=== PATIENT | female | born 1960 | race Caucasian/White ===

== ENCOUNTER 2023-03-31 17:11 | Emergency (ER) | payer OTHER, SELFPAY ==
[2023-03-31 17:15] VITALS: BP 157/98
--- NOTE | 2023-03-31 17:36 | ED.GENMED ---
History of Present Illness
General
Chief Complaint: Vascular Symptoms
Source: patient
Time Seen by Provider: 03/31/23 17:26
Travel History
Have you had any contact with someone who has COVID-19?: No
Do you have any symptoms of coronavirus? Fever > 100 degrees, chills, cough, shortness of breath, sore throat, loss of taste or smell, muscle aches, or headache?: No
History of Present Illness
History of Present Illness:
62-year-old female presents to the emergency room complaining of lower extremity edema and some redness. Patient states she began taking a medication for rheumatoid arthritis, Rinvoq. Patient states that shortly after starting medication she had
experienced swelling throughout her body. She stopped the medicine and after 3 days seems to feel the swelling is improved. She saw her application systems engineer today who referred her to the emergency room. She continues to have swelling of her lower
extremities. Patient has history of pulmonary fibrosis as well. She is on 3 L of oxygen at baseline. She does not feel more short of breath than her recent baseline. She is urinating normally.
Past History
Past History
ED Past Medical History: COPD, Other (Ankylosing spondylitis, chronic pain syndrome, GERD, diverticulitis, diverticulosis, fibromyalgia, kidney stones) and Other (Alkalosing spondylitis, migraine headaches, fibromyalgia)
ED Past Surgical History: Appendectomy, Cholecystectomy and Orthopedic (Surgery right elbow for ulnar nerve entrapment release)
Social History
Tobacco: Former smoker
Alcohol: None
Drug: None
Personal:
Living: with family
Employment: Employed
Family History
Family History: Other
Phy Exam
Physical Exam
Physical Exam:
General: Awake, Alert, Oriented X3. No acute distress.
Vitals: Mildly tachycardic
Head: Atraumatic
Eyes: Pupils equal, EOMI
Throat: Airway intact, no exudates
Neck: Trachea midline
Lungs: Crackles bilateral bases
Heart: Regular rate, no murmurs
Abd: Soft, Nontender, No pulsatile mass
Neuro: Nonfocal
Skin: Warm, dry, no rash
Extremities: pulses equal b/l, 2-3+ edema
Course
Orders/Labs/Results
Orders:
Orders
03/31/23 17:35
US Periph Venous LOWER Ext Patricio Urgent
Comment:
Reason For Exam: Pain, swelling
03/31/23 17:39
Basic Metabolic Panel Urgent
Complete Blood Count/With Diff Urgent
NT-proBNP Urgent
Abnormal Lab Results
03/31/23
17:39
RBC 3.87 L 10^6/uL
(4.20-5.40)
Hct 36.9 L %
(37.0-47.0)
MCH 32.8 H pg
(27.0-31.0)
Neutrophils % 76.5 H %
(42.2-75.2)
Lymphocytes % 14.9 L %
(20.5-51.1)
Carbon Dioxide 31 H mmol/L
(22-30)
Glucose 114 H mg/dl
(70-99)
03/31/23 17:39
03/31/23 17:39
Vital Signs
Initial and Last Documented VS:
Initial Vital Signs
Temp Pulse Resp BP Pulse Ox
98.0 F 105 18 157/98 98
03/31/23 17:15 03/31/23 17:15 03/31/23 17:15 03/31/23 17:15 03/31/23 17:15
Last Documented Vital Signs
Temp Pulse Resp BP Pulse Ox
98.0 F 105 18 157/98 98
03/31/23 17:15 03/31/23 17:15 03/31/23 17:15 03/31/23 17:15 03/31/23 17:15
MDM/Problems Addressed
Differential Diagnosis Includes:
Medication reaction, dependent edema, DVT, cellulitis
MDM/Problems Addressed:
Patient exam is not consistent with cellulitis. The fact she has bilateral leg swelling at the same time argues against a DVT but we did perform Dopplers which were negative. Labs show a normal BNP. Remainder of her labs are unremarkable.
Suspect dependent edema. Stable for discharge home.
*Radiology
Radiology exam reviewed: radiology read reviewed
*Critical Care Note
Total Time (30-74mins, 75-104mins- exclusive of procedures): Not Applicable
ED Attending Note
-
Portions of this chart may have been created with voice recognition software.� Occasional wrong word or��sound alike� substitutions may have occurred due to the inherent limitations of voice recognition software.
Discharge Plan
Departure
Patient Disposition: Home (Routine Discharge)
Date of Disposition: 03/31/23
Time of Disposition: 19:04
Patient with high blood pressure during this ER visit?: Yes
Condition: Good
Discharge Problem:
Edema, peripheral
Instructions: Dependent Edema (DC), BLOOD PRESSURE
Prescriptions:
No Action
famotidine 40 MG tablet
40 mg PO BID
oxycodone 15 MG tablet
15 mg PO 5/D Qty: 0
Patient Comments:
patient product picker on 01/31/23 #[id number]
diphenhydramine HCl [Banophen] 25 MG capsule
25 mg PO HSPRN PRN (Reason: insomnia)
buprenorphine HCl [Belbuca] 150 MCG film
300 mcg buccal BID
Patient Comments:
07/31/2020: last filled 07/28/20, 60 tabs [facility]
acetaminophen 325 MG tablet
325 mg PO Q4HPRN PRN (Reason: mild pain)
ondansetron HCl 4 mg Tablet
4 mg PO Q6H PRN (Reason: nausea) Qty: 0
Patient Comments:
pt does not know mg
multivitamin Tablet
1 tab PO DAILY
fluticasone propion-salmeterol [Advair Diskus] 250-50 mcg/dose Blister With Device
1 inh INHALATION R BID
venlafaxine [Effexor XR] 150 mg Capsule,Extended Release 24hr
150 mg PO HS
bupropion HCl [Wellbutrin XL] 300 mg Tablet Extended Release 24 Hr
300 mg PO DAILY
atomoxetine 60 mg capsule
60 mg PO DAILY
benzonatate 100 mg Capsule
200 mg PO TIDPRN PRN (Reason: cough) Qty: 20 0RF
oseltamivir 75 mg Capsule
75 mg PO BID 2 Days Qty: 4 0RF
guaifenesin 600 mg Tablet Extended Release 12hr
600 mg PO Q12 Qty: 30 0RF
levalbuterol HCl 0.63 mg/3 mL Solution For Nebulization
0.63 mg inhalation R Q6HPRN PRN (Reason: WHEEZING/SOB) Qty: 72 0RF
cefdinir 300 mg Capsule
300 mg PO Q12 5 Days Qty: 10 0RF
prednisone 10 mg Tablet
See Rx Instructions .ROUTE .COMPLEX Qty: 45 0RF
Rx Instructions:
Take By Mouth:
50 mg daily x3 days, 40 mg daily x3 days,
30 mg daily x3 days, 20 mg daily x3 days,
10 mg daily x3 days
albuterol sulfate 90 mcg/actuation aerosol powdr breath activated
2 inh inhalation Q4H PRN (Reason: shortness of breath or wheezing) Qty: 1 0RF
Referrals:
Nathaniel Betancourt, DO [Family Provider] -
Interventions
Interventions:
*ED COVID-19 Vaccine History Last Done: 03/31/23 17:15
*Nursing Disposition Last Done: 03/31/23 19:40
ED- Cardiac Assessment Last Done: 03/31/23 19:38
ED- Pulmonary Assessment Last Done: 03/31/23 19:38
ED-Peripheral Vascular Assessment Last Done: 03/31/23 19:39
ED-Skin Assessment Last Done: 03/31/23 19:38
Discharge Date and Time
Discharge Date/Time: 03/31/23 19:40
[2023-03-31 17:54] LABS: % Basophils 0.2 % (0-2); % Eosinophils 0.6 % (0-6); % Immature Granulocytes 0.2 % (0-0.5); % Lymphocytes 14.9 % (20.5-51.1); % Monocytes 7.6 % (1.7-9.3); % Neutrophils 76.5 % (42.2-75.2); Absolute Eosinophils 0.1 10^3/uL (0-0.7); Absolute Lymphocytes 1.2 10^3/uL (1.2-3.4); Absolute Monocytes 0.6 10^3/uL (0.1-0.6); Absolute Neutrophils 6.3 10^3/uL (1.4-6.5); Hematocrit 36.9 % (37.0-47.0); Hemoglobin 12.7 g/dL (12.0-16.0); Mean Corp Hgb Conc. 34.4 g/dL (33.0-37.0); Mean Corpuscular Hgb 32.8 pg (27.0-31.0); Mean Corpuscular Volume 95.3 fL (81.0-99.0); Mean Platelet Volume 9.3 fL (7.4-10.4); Nucleated Red Blood Cells % 0 %; Platelet Count 281 10^3/uL (130-400); Red Blood Cell Count 3.87 10^6/uL (4.20-5.40); Red Cell Dist. Width 13.2 % (11.5-14.5); White Blood Cell Count 8.3 10^3/uL (4.8-10.8)
[2023-03-31 18:15] LABS: NT-proBNP 40.4 pg/ml
[2023-03-31 18:16] LABS: Blood Urea Nitrogen 15 mg/dl (7-17); Calcium 9.2 mg/dl (8.4-10.2); Carbon Dioxide 31 mmol/L (22-30); Chloride 101 mmol/L (98-107); Glucose 114 mg/dl (70-99); Sodium 136 mmol/L (135-145); eGFR > 60.00
== END 2023-03-31 19:40 | disposition home or self-care (01) ==
LOC: EMR 17:11
PROVIDERS: EMERGENCY PHYSICIAN Emergency Medicine; FAMILY PHYSICIAN Family Medicine
DX: R60.0 Localized edema (principal); R03.0 Elevated blood-pressure reading, without diagnosis of hypertension; Z87.891 Personal history of nicotine dependence
CPT/HCPCS: 99284; 80048; 83880; 85025; 93970

== ENCOUNTER → 2023-11-18 18:23 | Outpatient (REF) | payer OTHER, SELFPAY | LOC: RAD 18:23 | PROVIDERS: ATTENDING PHYSICIAN Physician Assistant Medical; FAMILY PHYSICIAN Family Medicine | DX: M25.532 Pain in left wrist (principal); M79.642 Pain in left hand | CPT/HCPCS: 73110; 73130 ==

== ENCOUNTER → 2023-12-05 18:28 | Outpatient (REF) | payer OTHER, SELFPAY | LOC: PAVMRI 18:28 | PROVIDERS: ATTENDING PHYSICIAN Student in an Organized Health Care Education/Training Program; PRIMARYCARE PHYSICIAN Family Medicine | DX: S62.115A Nondisplaced fracture of triquetrum [cuneiform] bone, left wrist, initial encounter for closed fracture (principal) | CPT/HCPCS: 73221 ==

== ENCOUNTER → 2024-06-07 13:00 | Outpatient (REF) | payer OTHER, SELFPAY | LOC: HWRAD 13:00 | PROVIDERS: ATTENDING PHYSICIAN Internal Medicine Critical Care Medicine; FAMILY PHYSICIAN Family Medicine; REFERRING PHYSICIAN Nurse Practitioner Adult Health | DX: J44.9 Chronic obstructive pulmonary disease, unspecified (principal); J84.9 Interstitial pulmonary disease, unspecified; R59.0 Localized enlarged lymph nodes; M45.9 Ankylosing spondylitis of unspecified sites in spine; I27.20 Pulmonary hypertension, unspecified | CPT/HCPCS: 71046; 71250 ==

== ENCOUNTER → 2024-08-02 13:54 | Outpatient (REF) | payer OTHER, SELFPAY ==
--- NOTE | 2024-08-02 14:50 | CARDSERVLU ---
Echocardiogram with Lumason completed after protocol screening completed. Allergies verified.
Patent IV site: __Right hand 22 G PC by IV team___
IV site flushed with 0.9% NaCl pre and post administration.
Diluted bolus method utilized to enhance visualization of ventricular correa.
Total volume given: __2__ mL
Patient tolerated all procedures well without complications.
Heplock D/C ed at 1448, site clear, no redness, no edema. Pressure held, no bleeding, 2x2 applied and taped. Pt offers no complaints.
== END ==
LOC: RCS 13:54
PROVIDERS: ATTENDING PHYSICIAN Internal Medicine Cardiovascular Disease; FAMILY PHYSICIAN Family Medicine
DX: I50.32 Chronic diastolic (congestive) heart failure (principal)
CPT/HCPCS: 93306; Q9950

== ENCOUNTER 2024-11-10 15:47 | Emergency (ER) | payer OTHER, SELFPAY ==
[2024-11-10 15:49] VITALS: BP 170/117
[2024-11-10 16:37] LABS: Hematocrit 38.5 % (37.0-47.0); Hemoglobin 12.8 g/dL (12.0-16.0); Mean Corp Hgb Conc. 33.2 g/dL (33.0-37.0); Mean Corpuscular Volume 92.8 fL (81.0-99.0); Nucleated Red Blood Cells % 0 %; Platelet Count 248 10^3/uL (130-400); Red Cell Dist. Width 13.2 % (11.5-14.5)
[2024-11-10 16:55] LABS: ALT (SGPT) 31 U/L (0-35); AST (SGOT) 31 U/L (14-36); Albumin 4.7 g/dl (3.5-5.0); Alkaline Phosphatase 117 U/L (38-126); Blood Urea Nitrogen 19 mg/dl (7-17); Calcium 9.2 mg/dl (8.4-10.2); Carbon Dioxide 29 mmol/L (22-30); Chloride 104 mmol/L (98-107); Glucose 94 mg/dl (70-99); Potassium 4.2 mmol/L (3.5-5.1); Sodium 139 mmol/L (135-145); Total Protein 8.0 g/dl (6.3-8.2); eGFR > 60.00
[2024-11-10 17:08] LABS: Troponin I < 0.012 ng/ml
[2024-11-10 17:16] LABS: D-Dimer 0.67 ug/mlFEU (0.00-0.50)
--- NOTE | 2024-11-10 17:42 | ED.GENMED ---
History of Present Illness
General
Chief Complaint: Breathing Problem
Source: patient
Time Seen by Provider: 11/10/24 17:27
History of Present Illness
History of Present Illness:
This patient is a 64-year-old female with a history of pulmonary fibrosis and COPD, wears 2 L of oxygen [id number] and 4 L with activity. Patient states she is recovering from COVID and in the last 2 weeks she is having intermittent episodes
of dyspnea. This will last a few minutes at a time and then resolve spontaneously. Usually is noted with activity and is not associated with chest pain or pressure, palpitations, dizziness, fever, chills, cough, sore throat, rhinorrhea, new leg
swelling, abdominal pain, vomiting. She saw her route sales trainee on and was advised to take steroids which she declined at that time. She is hoping to take a trip to [place] today and wanted to get checked out before leaving. She did note
that the last episode of short-lived dyspnea was this morning at approximately 7 AM when she needed to wake up to use the restroom. She walked to the bathroom and when she came back she felt better within a few minutes with a pulse ox of 90%.
Patient is now asymptomatic and has been asymptomatic since this event at 7 AM.
Past History
Past History
ED Past Medical History: COPD, Other (Ankylosing spondylitis, chronic pain syndrome, GERD, diverticulitis, diverticulosis, fibromyalgia, kidney stones) and Other (Alkalosing spondylitis, migraine headaches, fibromyalgia)
ED Past Surgical History: Appendectomy, Cholecystectomy and Orthopedic (Surgery right elbow for ulnar nerve entrapment release)
Social History
Tobacco: Former smoker
Alcohol: None
Drug: None
Personal:
Living: with family
Employment: Employed
Family History
Family History: Other
Phy Exam
Physical Exam
Physical Exam:
GENERAL: Alert , in no apparent distress, very pleasant, nontoxic, watching television
EYE: pupils equal and reactive
NECK: Supple, no significant adenopathy.
ENT: o/p clr, mmm.
CARDIAC: Regular rate and rhythm .
LUNGS: Clear breath sounds bilaterally, no acute respiratory distress, no wheezes/rales/rhonchi, speaks in full sentences easily, no stridor, no drool, voice clear
ABDOMEN: Soft, without focal tenderness, no r/g, no cvat
NEUROLOGICAL: Alert and oriented, no focal neuro deficits
SKIN: Warm and dry, skin intact.
MUSCULOSKELETAL: Trace bilateral lower extremity edema, well perfused.
PSYCH: Normal and appropriate interaction.
Scores
Heart Failure Risk
Heart Failure Risk Score: Not Applicable
Course
Orders/Labs/Results
Orders:
Orders
11/10/24 16:03
Electrocardiogram (*1) Urgent
Reason for Study: Shortness of Breath
Complete Blood Count/With Diff Urgent
Comprehensive Metabolic Panel Urgent
D-Dimer Urgent
Troponin I Urgent
Chest [CR Chest - 2 Views ] Urgent
Comment:
Reason For Exam: SOB
11/10/24 16:06
EKG- Treatment ONCE
11/10/24 17:42
CT Chest PE Study Urgent
Comment:
Reason For Exam: sob, hx copd
11/10/24 17:47
Influenza A+B Rapid Molecular Urgent
DANNIE Source: Nasal Swab
Specimen Description:
Abnormal Lab Results
11/10/24
16:03
RBC 4.15 L 10^6/uL
(4.20-5.40)
D-Dimer 0.67 H ug/mlFEU
(0.00-0.50)
BUN 19 H mg/dl
(7-17)
11/10/24 16:03
11/10/24 16:03
Vital Signs
Initial and Last Documented VS:
Initial Vital Signs
Temp Pulse Resp BP Pulse Ox
98.4 F 85 20 170/117 96
11/10/24 15:49 11/10/24 15:49 11/10/24 15:49 11/10/24 15:49 11/10/24 15:49
Last Documented Vital Signs
Temp Pulse Resp BP Pulse Ox
98.4 F 85 14 140/69 93
11/10/24 15:49 11/10/24 19:17 11/10/24 17:56 11/10/24 19:17 11/10/24 19:17
*Pulse Oximetry
SaO2: 96
Nasal Cannula flow liters per minute: 3
Patient hypoxic: no
*Critical Care Note
Total Time (30-74mins, 75-104mins- exclusive of procedures): Not Applicable
Update Note
Update Note:
Patient presents to the Emergency Department with __dyspnea
Number and Complexity of Problems Addressed at the Encounter
� Chronic conditions affecting care:
� Acute Exacerbation and/or Progression of Chronic Illness:
� Differential Diagnosis includes: But not limited to resolving COVID related symptoms, anxiety, PE, pneumonia, heart failure, ACS, etc. etc.
Amount and/or Complexity of Data to be Reviewed and Analyzed
� I performed an independent evaluation of and my interpretation is:
EKG: Read by me, normal sinus rhythm, normal rate, normal axis, no acute ischemia
CT:No CTA evidence for an acute pulmonary thromboembolism.
Pulmonary findings favored to represent a combination of emphysema, chronic fibrosis, and atelectasis
Xrays: Read by radiology chest x-ray NAD
Laboratory Studies: Generally unremarkable, troponin and BNP unremarkable D-dimer slightly elevated prompting CAT scan to rule out PE
Other:
� Review of other/old records reveals:
� Clinical information was obtained by an independent historian:
� Prescriptions/Medications Considered but not given:
� Further testing considered but not performed:
Risk of Complications and/or Morbidity or Mortality of Patient Management
� Social determinants of health affecting care:
� Discussion with other providers (PCP, Hospitalists, Consultants, etc):
� Escalation of care including admission/observation vs risk of discharge considered: Patient has remained clinically stable here, workup unremarkable. Highly doubt PE, pneumonia, ACS, failure, etc. as a cause of her symptoms.
Most likely symptoms thought to be related to residual COVID related illness in the context of COPD and pulmonary fibrosis. Consideration to begin patient on steroids with close pulmonary follow-up.
ED Attending Note
-
Portions of this chart may have been created with voice recognition software.� Occasional wrong word or��sound alike� substitutions may have occurred due to the inherent limitations of voice recognition software.
Discharge Plan
Departure
Patient with high blood pressure during this ER visit?: Yes
Condition: Good
Discharge Problem:
Dyspnea
Instructions: Shortness of Breath (Dyspnea) (DC), BLOOD PRESSURE
Prescriptions:
No Action
famotidine 40 MG tablet
40 mg PO BID
oxycodone 15 MG tablet
15 mg PO 5/D Qty: 0
Patient Comments:
patient flower buncher or picker on 01/31/23 #180
diphenhydramine HCl [Banophen] 25 MG capsule
25 mg PO HSPRN PRN (Reason: insomnia)
buprenorphine HCl [Belbuca] 150 MCG film
300 mcg buccal BID
Patient Comments:
07/31/2020: last filled 07/28/20, [facility]
acetaminophen 325 MG tablet
325 mg PO Q4HPRN PRN (Reason: mild pain)
ondansetron HCl 4 mg Tablet
4 mg PO Q6H PRN (Reason: nausea) Qty: 0
Patient Comments:
pt does not know mg
multivitamin Tablet
1 tab PO DAILY
fluticasone propion-salmeterol [Advair Diskus] 250-50 mcg/dose Blister With Device
1 inh INHALATION R BID
venlafaxine [Effexor XR] 150 mg Capsule,Extended Release 24hr
150 mg PO HS
bupropion HCl [Wellbutrin XL] 300 mg Tablet Extended Release 24 Hr
300 mg PO DAILY
atomoxetine 60 mg capsule
60 mg PO DAILY
benzonatate 100 mg Capsule
200 mg PO TIDPRN PRN (Reason: cough) Qty: 20 0RF
oseltamivir 75 mg Capsule
75 mg PO BID 2 Days Qty: 4 0RF
guaifenesin 600 mg Tablet Extended Release 12hr
600 mg PO Q12 Qty: 30 0RF
levalbuterol HCl 0.63 mg/3 mL Solution For Nebulization
0.63 mg inhalation R Q6HPRN PRN (Reason: WHEEZING/SOB) Qty: 72 0RF
cefdinir 300 mg Capsule
300 mg PO Q12 5 Days Qty: 10 0RF
prednisone 10 mg Tablet
See Rx Instructions .ROUTE .COMPLEX Qty: 45 0RF
Rx Instructions:
Take By Mouth:
50 mg daily x3 days, 40 mg daily x3 days,
30 mg daily x3 days, 20 mg daily x3 days,
10 mg daily x3 days
albuterol sulfate 90 mcg/actuation aerosol powdr breath activated
2 inh inhalation Q4H PRN (Reason: shortness of breath or wheezing) Qty: 1 0RF
Referrals:
UNKNOWN - PT DOES,NOT KNOW [Family Provider]
Activity Restrictions/Additional Instructions:
PLEASE SEE YOUR DOCTOR IN CLOSE FOLLOW UP. IF YOU DEVELOP RECURRENT SHORTNESS OF BREATH,ANY CHEST PAIN, VOMITING, FEVER, DIZZINESS, OR OTHER WORRISOME SIGNS, GO TO THE ER IMMEDIATELY!
Interventions
Interventions:
*Risk Screen - Suicide Last Done: 11/10/24 15:49
*General Assessment Last Done: 11/10/24 15:49
*Neglect/Abuse Screening Last Done: 11/10/24 15:49
*ED COVID-19 Vaccine History Last Done: 11/10/24 15:49
ED- Cardiac Assessment Last Done: 11/10/24 17:58
ED- Pulmonary Assessment Last Done: 11/10/24 17:58
Discharge Date and Time
Print Language: AUSTRIAN
[2024-11-10 17:55] VITALS: BMI 43.2
[2024-11-10 17:56] VITALS: BP 137/75
[2024-11-10 19:17] VITALS: BP 140/69
[2024-11-10 20:00] VITALS: BP 128/78
--- NOTE | 2024-11-10 20:53 | ED.GENMED ---
History of Present Illness
General
Chief Complaint: Breathing Problem
Time Seen by Provider: 11/10/24 17:27
Past History
Past History
ED Past Medical History: COPD, Other (Ankylosing spondylitis, chronic pain syndrome, GERD, diverticulitis, diverticulosis, fibromyalgia, kidney stones) and Other (Alkalosing spondylitis, migraine headaches, fibromyalgia)
ED Past Surgical History: Appendectomy, Cholecystectomy and Orthopedic (Surgery right elbow for ulnar nerve entrapment release)
Social History
Tobacco: Former smoker
Alcohol: None
Drug: None
Personal:
Living: with family
Employment: Employed
Family History
Family History: Other
Course
Orders/Labs/Results
Orders:
Orders
11/10/24 16:03
Electrocardiogram (*1) Urgent
Reason for Study: Shortness of Breath
Complete Blood Count/With Diff Urgent
Comprehensive Metabolic Panel Urgent
D-Dimer Urgent
Troponin I Urgent
Chest [CR Chest - 2 Views ] Urgent
Comment:
Reason For Exam: SOB
11/10/24 16:06
EKG- Treatment ONCE
11/10/24 17:42
CT Chest PE Study Urgent
Comment:
Reason For Exam: sob, hx copd
11/10/24 17:47
Influenza A+B Rapid Molecular Urgent
DANNIE Source: Nasal Swab
Specimen Description:
Abnormal Lab Results
11/10/24
16:03
RBC 4.15 L 10^6/uL
(4.20-5.40)
D-Dimer 0.67 H ug/mlFEU
(0.00-0.50)
BUN 19 H mg/dl
(7-17)
11/10/24 16:03
11/10/24 16:03
Vital Signs
Initial and Last Documented VS:
Initial Vital Signs
Temp Pulse Resp BP Pulse Ox
98.4 F 85 20 170/117 96
11/10/24 15:49 11/10/24 15:49 11/10/24 15:49 11/10/24 15:49 11/10/24 15:49
Last Documented Vital Signs
Temp Pulse Resp BP Pulse Ox
98.4 F 80 15 128/78 93
11/10/24 15:49 11/10/24 20:00 11/10/24 20:00 11/10/24 20:00 11/10/24 19:17
*Pulse Oximetry
SaO2: 93
Nasal Cannula flow liters per minute: 2
ED Attending Note
-
Portions of this chart may have been created with voice recognition software.� Occasional wrong word or��sound alike� substitutions may have occurred due to the inherent limitations of voice recognition software.
Discharge Plan
Departure
Patient Disposition: Home (Routine Discharge)
Date of Disposition: 11/10/24
Time of Disposition: 20:53
Patient with high blood pressure during this ER visit?: Yes
Condition: Good
Discharge Problem:
Dyspnea
Instructions: Shortness of Breath (Dyspnea) (DC), BLOOD PRESSURE
Prescriptions:
No Action
famotidine 40 MG tablet
40 mg PO BID
oxycodone 15 MG tablet
15 mg PO 5/D Qty: 0
Patient Comments:
patient sisal picker on 01/31/23 #180
diphenhydramine HCl [Banophen] 25 MG capsule
25 mg PO HSPRN PRN (Reason: insomnia)
buprenorphine HCl [Belbuca] 150 MCG film
300 mcg buccal BID
Patient Comments:
07/31/2020: last filled 07/28/20, [facility]
acetaminophen 325 MG tablet
325 mg PO Q4HPRN PRN (Reason: mild pain)
ondansetron HCl 4 mg Tablet
4 mg PO Q6H PRN (Reason: nausea) Qty: 0
Patient Comments:
pt does not know mg
multivitamin Tablet
1 tab PO DAILY
fluticasone propion-salmeterol [Advair Diskus] 250-50 mcg/dose Blister With Device
1 inh INHALATION R BID
venlafaxine [Effexor XR] 150 mg Capsule,Extended Release 24hr
150 mg PO HS
bupropion HCl [Wellbutrin XL] 300 mg Tablet Extended Release 24 Hr
300 mg PO DAILY
atomoxetine 60 mg capsule
60 mg PO DAILY
benzonatate 100 mg Capsule
200 mg PO TIDPRN PRN (Reason: cough) Qty: 20 0RF
oseltamivir 75 mg Capsule
75 mg PO BID 2 Days Qty: 4 0RF
guaifenesin 600 mg Tablet Extended Release 12hr
600 mg PO Q12 Qty: 30 0RF
levalbuterol HCl 0.63 mg/3 mL Solution For Nebulization
0.63 mg inhalation R Q6HPRN PRN (Reason: WHEEZING/SOB) Qty: 72 0RF
cefdinir 300 mg Capsule
300 mg PO Q12 5 Days Qty: 10 0RF
prednisone 10 mg Tablet
See Rx Instructions .ROUTE .COMPLEX Qty: 45 0RF
Rx Instructions:
Take By Mouth:
50 mg daily x3 days, 40 mg daily x3 days,
30 mg daily x3 days, 20 mg daily x3 days,
10 mg daily x3 days
albuterol sulfate 90 mcg/actuation aerosol powdr breath activated
2 inh inhalation Q4H PRN (Reason: shortness of breath or wheezing) Qty: 1 0RF
Referrals:
UNKNOWN - PT DOES,NOT KNOW [Family Provider]
Activity Restrictions/Additional Instructions:
PLEASE SEE YOUR DOCTOR IN CLOSE FOLLOW UP. IF YOU DEVELOP RECURRENT SHORTNESS OF BREATH,ANY CHEST PAIN, VOMITING, FEVER, DIZZINESS, OR OTHER WORRISOME SIGNS, GO TO THE ER IMMEDIATELY!
Interventions
Interventions:
*Risk Screen - Suicide Last Done: 11/10/24 15:49
*General Assessment Last Done: 11/10/24 15:49
*Neglect/Abuse Screening Last Done: 11/10/24 15:49
*ED COVID-19 Vaccine History Last Done: 11/10/24 15:49
ED- Cardiac Assessment Last Done: 11/10/24 17:58
ED- Pulmonary Assessment Last Done: 11/10/24 17:58
Discharge Date and Time
Print Language: BANGLADESHI
== END 2024-11-10 20:56 | disposition home or self-care (01) ==
LOC: EMR 15:47
PROVIDERS: Emergency Medicine; EMERGENCY PHYSICIAN Emergency Medicine
DX: R06.00 Dyspnea, unspecified (principal); J84.10 Pulmonary fibrosis, unspecified; J44.9 Chronic obstructive pulmonary disease, unspecified; K21.9 Gastro-esophageal reflux disease without esophagitis; M45.9 Ankylosing spondylitis of unspecified sites in spine; G89.4 Chronic pain syndrome; M79.7 Fibromyalgia; Z99.81 Dependence on supplemental oxygen; Z87.891 Personal history of nicotine dependence
CPT/HCPCS: 99284; 71046; 71275; 80053; 84484; 85025; 85379; 87502; 93005; Q9967